=== PATIENT | male | born 2000 | race Caucasian/White ===

== ENCOUNTER 2018-06-01 14:53 | Outpatient (REF) | payer MEDICAID, SELFPAY ==
[2018-06-03 08:29] LABS: HIV-1/2 Ag & Ab Screen Negative (NEGAT)
[2018-06-03 13:25] LABS: Chlamydia Result Negative; GC Result Negative; Specimen Description URINE
== END 2018-06-01 15:13 ==
LOC: NCHCN 14:53
PROVIDERS: Visit Provider Nurse Practitioner Family
DX: Z11.3 Encounter for screening for infections with a predominantly sexual mode of transmission (principal); Z11.4 Encounter for screening for human immunodeficiency virus [HIV]
CPT/HCPCS: 87389; 87491; 87591

== ENCOUNTER 2020-08-17 16:43 | Outpatient (REF) | payer BC, MEDICAID, SELFPAY ==
[2020-08-20 10:33] LABS: Hepatitis C Ab w Rflx HCV PCR Negative (Negative)
[2020-08-20 10:36] LABS: HIV-1/2 Ag & Ab Screen Negative (Negative)
[2020-08-20 10:56] LABS: Syphilis Serology (RPR) Negative (Negative)
[2020-08-20 14:59] LABS: Chlamydia Result Negative (Negative); GC Result Negative (Negative)
[2020-08-21 12:02] LABS: TSH 1.11 uIU/mL (0.36-3.74)
== END 2020-08-17 17:03 ==
LOC: NCHCN 16:43
PROVIDERS: PCP Physician Assistant; Visit Provider Physician Assistant
DX: R53.83 Other fatigue (principal); Z11.4 Encounter for screening for human immunodeficiency virus [HIV]; Z11.3 Encounter for screening for infections with a predominantly sexual mode of transmission; Z11.59 Encounter for screening for other viral diseases
CPT/HCPCS: 86803; 87389; 87491; 87591; 84443; 86592